=== PATIENT | female | born 1980 ===

== ENCOUNTER 2025-02-27 08:00 | Outpatient (CLI) | payer OTHER ==
[~2025-02-27] VITALS: Ht 149.9 cm; Wt 77.1 kg
[2025-02-27] MEDS ORDERED: MONTELUKAST SODI4 M1 (13:23)
[2025-02-27] MEDS ORDERED: TOPROL XL50 M1 PO (13:23)
[2025-02-27] MEDS ORDERED: ALLERGY RELIEF10 M4 PO (13:24)
[2025-02-27] MEDS ORDERED: PEPCID AC20 MG (13:25)
[2025-02-27 13:51] VITALS: BP 152/89
== END 2025-02-27 08:01 | disposition home or self-care (01) ==
LOC: RAD 08:00 → ADM 12:00 → CIR.AMB 03-05 07:00 → EDSTATUS 03-05 12:00
PROVIDERS: ATTEND Otolaryngology Otology & Neurotology
DX: H90.11 Conductive hearing loss, unilateral, right ear, with unrestricted hearing on the contralateral side (principal); D68.9 Coagulation defect, unspecified; Z03.818 Encounter for observation for suspected exposure to other biological agents ruled out